=== PATIENT | female | born 1965 | race Caucasian/White ===

== ENCOUNTER 2020-02-10 09:23 | Observation (INO) | payer BC ==
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
[2020-02-10 09:54] LABS: #Basophils 0.1 thou/uL (0.0-0.2); #Eosinphils 0.2 thou/uL (0.0-0.7); #Lymphocytes 2.2 thou/uL (1.20-3.40); #Monocytes 0.3 thou/uL (0.11-0.59); #Neutrophils 3.5 thou/uL (1.40-6.50); %Basophils 1.9 % (0.0-1.0); %Eosinophils 2.8 % (0.0-10.0); %Monocytes 4.3 % (0.0-10.0); %Neutrophils 55.9 % (42.0-75.0); Mean Corpuscular HGB CONC 31.8 g/dL (32.0-36.0); Platelet Count 283 thou/uL (130-400); RBC Distribution Width 12.1 % (11.5-14.5); Red Blood Cell (RBC) Count 4.06 mill/uL (4.20-5.40); White Blood Cell (WBC) Count 6.2 thou/uL (4.8-10.8)
[2020-02-10 10:03] LABS: PTT 30.5 sec (22.9-36.1)
[2020-02-10 10:10] LABS: ALT (SGPT) 18 U/L (8-55); AST (SGOT) 27 U/L (5-34); Albumin 3.9 g/dL (3.5-5.0); Alkaline Phosphatase 123 U/L (40-110); Anion Gap 15 mmol/L (10-20); BUN (Urea Nitrogen) 11 mg/dL (9.8-20.1); Bilirubin, Total 0.4 mg/dL (0.2-1.2); CK (CPK) 77 U/L (29-168); Calc. Creatinine Clearance 0 mL/min (70-130); Calcium 8.6 mg/dL (7.8-10.44); Carbon Dioxide 16 mmol/L (22-29); Chloride 114 mmol/L (98-107); Globulin 2.5 g/dL (2.4-3.5); Glucose 130 mg/dL (70-105); Potassium 4.1 mmol/L (3.5-5.1); Protein, Total 6.4 g/dL (6.0-8.3); Sodium 141 mmol/L (136-145)
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
[2020-02-10] MEDS ORDERED: Iopamidol-370 76% 500 ML 1 ML ONE (10:32)
[2020-02-10] MEDS ORDERED: Aspirin 325 MG TAB ONE (11:03)
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
[2020-02-10 12:54] LABS: Bacteria/HPF None Seen HPF (None Seen); Bilirubin Negative (Negative); Blood, Urine Negative (Negative); Clarity Turbid (Clear); Glucose, Urine (Dipstick) Normal (Negative); Ketone, Urine Negative (Negative); Leukocyte 75 Leu/uL (Negative); Nitrite Negative (Negative); Protein, Urine (Dipstick) Negative (Neg-Trace); Squamous Epithelial 0-3 HPF (0-3); Urobilinogen Normal mg/dL (Less than 2); WBC/HPF None Seen HPF (0-3); pH, Urine 7.5 (5.0-9.0)
[2020-02-10 13:05] LABS: Specific Gravity, Urine 1.047 (1.002-1.036)
[2020-02-10] MEDS ORDERED: Acetaminophen 325 MG TAB PO PRN (14:08)
[2020-02-10] MEDS ORDERED: Senokot S 8.6-50 MG TAB PO PRN (14:08)
[2020-02-10] MEDS ORDERED: Ondansetron PF 4 MG/2 ML Vial IVP PRN (14:08)
[2020-02-10] MEDS ORDERED: Bisacodyl 10 MG SUPP PR PRN (14:08)
[2020-02-10] MEDS ORDERED: Loperamide HCl 2 MG CAP PO PRN (14:08)
[2020-02-10] MEDS ORDERED: Guaifenesin DM 100-10/5 ML UDCUP PO PRN (14:08)
[2020-02-10] MEDS ORDERED: Calcium Carbonate 500 MG ChewTAB PO PRN (14:08)
[2020-02-10] MEDS ORDERED: Ondansetron ODT 4 MG TAB PO PRN (14:08)
[2020-02-10 14:29] VITALS: BMI 26.7
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
[2020-02-10] MEDS ORDERED: SUMAtriptan Succinate 50 MG TAB PO PRN (20:08)
[2020-02-10] MEDS ORDERED: Bupropion 150 MG XL TAB PO SCH (21:00)
[2020-02-10] MEDS ORDERED: Citalopram 20 MG TAB PO SCH (21:00)
[2020-02-10] MEDS ORDERED: Loratadine 10 MG TAB PO SCH (21:00)
[2020-02-10] MEDS ORDERED: Montelukast Sodium 10 mg Tablet PO SCH (21:00)
[2020-02-10] MEDS ORDERED: Atorvastatin Calcium 40 MG TAB PO SCH (21:00)
[2020-02-10] MEDS ORDERED: Topiramate 100 MG TAB PO SCH (21:00)
[2020-02-10] MEDS: HYDROcodone/Acetaminophen 10/325 mg Tablet PO PRN (21:15)
[2020-02-10] MEDS: Famotidine 20 MG TAB PO SCH (21:16)
[2020-02-10 22:00] LABS: SARS-CoV-2 MS2 Positive; SARS-CoV-2 N Gene Negative; SARS-CoV-2 S Gene Negative; SARS-CoV-2 by NAA Not Detected (NotDetected); SARS-CoV-2 orf1ab Negative
[2020-02-11 05:25] LABS: Anion Gap 10 mmol/L (10-20); BUN (Urea Nitrogen) 12 mg/dL (9.8-20.1); Calc. Creatinine Clearance 86 mL/min (70-130); Calcium 8.7 mg/dL (7.8-10.44); Carbon Dioxide 24 mmol/L (22-29); Chloride 113 mmol/L (98-107); Cholesterol 217 mg/dl (< 200 Desired); Glucose 77 mg/dL (70-105); HDL Cholesterol 73 mg/dL (>60 Neg Risk); LDL Cholesterol, Calculated 124 mg/dL; Potassium 3.4 mmol/L (3.5-5.1); Sodium 144 mmol/L (136-145); Triglycerides 98 mg/dL (Less than 150)
[2020-02-11] MEDS: Famotidine 20 MG TAB PO SCH (08:08)
[2020-02-11] MEDS: HYDROcodone/Acetaminophen 10/325 mg Tablet PO PRN (08:08)
[2020-02-11] MEDS ORDERED: Aspirin 325 mg Enteric Coated Tablet PO SCH (09:00)
[2020-02-11] MEDS ORDERED: Potassium Chloride 20 MEQ TAB PO SCH (09:15)
[2020-02-11 10:28] LABS: #Basophils 0.1 thou/uL (0.0-0.2); #Eosinphils 0.2 thou/uL (0.0-0.7); #Lymphocytes 1.9 thou/uL (1.20-3.40); #Monocytes 0.4 thou/uL (0.11-0.59); %Basophils 1.8 % (0.0-1.0); %Eosinophils 3.8 % (0.0-10.0); %Lymphocytes 33.5 % (21.0-51.0); Hemoglobin 13.3 g/dL (12.0-16.0); Mean Corpuscular HGB CONC 32.1 g/dL (32.0-36.0); Mean Corpuscular Hemoglobin 31.6 pg (27.0-31.0); Mean Corpuscular Volume 98.7 fL (78.0-98.0); Mean Platelet Volume 7.7 fL (7.4-10.4); Platelet Count 298 thou/uL (130-400); RBC Distribution Width 12.1 % (11.5-14.5); Red Blood Cell (RBC) Count 4.19 mill/uL (4.20-5.40); White Blood Cell (WBC) Count 5.6 thou/uL (4.8-10.8)
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
--- NOTE | 2020-02-11 13:46 | MRI ---
MRI BRAIN WITHOUT CONTRAST: HISTORY: Left facial droop COMPARISON: None CORRELATION: CT scan from 02/10/2020. FINDINGS: No restricted diffusion is seen. There is a small old lacunar infarction in the left basal ganglia.. The ventricular size is appropriate and the basilar cisterns are patent. No evidence of acute infarct, hemorrhage, midline shift or abnormal extra-axial fluid collections is seen. There is mucosal disease in the paranasal sinuses. IMPRESSION: No evidence of acute intracranial process.
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
--- NOTE | 2020-02-11 17:24 | PDOC.EEG ---
Neurology EEG Report - Report Report: This EEG was performed using 24 channel [employer] video digital EEG machine with 24 disc electrodes. This was an extended 2-hours 6 minutes of inpatient video EEG recording. Digital analysis of the EEG was done for Wallace and seizure detection which revealed no abnormalities. Background: The posterior background rhythm is 9-10 Hz. The background rhythm attenuates with eye opening and enhances with eye closure. Hyperventilation.: Not performed. Photic stimulation: No significant response seen with photic stimulation Sleep: Drowsiness is observed. EEG diagnosis: Normal awake and drowsy EEG.
[2020-02-11 17:27] VITALS: TEMP 98
[2020-02-11 17:55] VITALS: BP 141/78
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
== END 2020-02-11 19:51 | disposition home or self-care (01) ==
LOC: ERS 09:23 → 2SE 11:55
PROVIDERS: ADMIT Internal Medicine; ATTEND Internal Medicine
DX: G45.9 Transient cerebral ischemic attack, unspecified (principal); I10 Essential (primary) hypertension; F41.9 Anxiety disorder, unspecified; F32.9 Major depressive disorder, single episode, unspecified; M47.22 Other spondylosis with radiculopathy, cervical region; Z79.899 Other long term (current) drug therapy; Z88.5 Allergy status to narcotic agent; Z91.048 Other nonmedicinal substance allergy status; Z88.8 Allergy status to other drugs, medicaments and biological substances
CPT/HCPCS: 36415; 36416; 70450; 70496; 70498; 70551; 72141; 80048; 80053; 80061; 81003; 81015; 82550; 83735; 84484; 85025; 85610; 85730; 87635; 93005; 93306; 95712; 95819; 95957; G0378; Q9967; U0003

== ENCOUNTER 2020-12-07 17:27 | Inpatient (IN) | payer BC ==
[2020-12-07] MEDS ORDERED: Fentanyl 100 MCG/2 ML VIAL ONE (17:51)
[2020-12-07] MEDS ORDERED: hydrALAZINE 20 MG/ML VIAL SLOW IVP PRN (18:40)
[2020-12-07] MEDS ORDERED: Ondansetron PF 4 MG/2 ML Vial IVP PRN (18:40)
[2020-12-07] MEDS ORDERED: Dextrose 50% Abboject 50 ML SYRINGE SLOW IVP PRN (18:40)
[2020-12-07] MEDS ORDERED: Dextrose 5% in Water 1,000 ML IV PRN (18:40)
[2020-12-07] MEDS ORDERED: Ondansetron ODT 4 MG TAB PO PRN (18:40)
[2020-12-07] MEDS ORDERED: Cyclobenzaprine 10 MG TAB PO PRN (18:44)
[2020-12-07] MEDS: Famotidine 20 MG TAB PO SCH (20:47)
[2020-12-07] MEDS: Acetaminophen 500 MG TAB PO SCH (20:47)
[2020-12-07] MEDS: Sodium Chloride 0.9% 1,000 ML IV SCH (20:48)
[2020-12-07 21:04] VITALS: BMI 25.7
[2020-12-08] MEDS: Acetaminophen 500 MG TAB PO SCH ×2 (02:41→08:54)
[2020-12-08] MEDS: Sodium Chloride 0.9% 1,000 ML IV SCH (06:31)
[2020-12-08 08:00] VITALS: TEMP 98
[2020-12-08] MEDS: Famotidine 20 MG TAB PO SCH (08:54)
[2020-12-08 10:28] VITALS: BP 116/71
== END 2020-12-08 11:41 | disposition home or self-care (01) | DRG 87 ==
LOC: ERS 17:27 → SURG B 18:15
PROVIDERS: ADMIT Surgery; ATTEND Surgery
DX: S06.5X0A Traumatic subdural hemorrhage without loss of consciousness, initial encounter (principal); S20.212A Contusion of left front wall of thorax, initial encounter; G43.909 Migraine, unspecified, not intractable, without status migrainosus; I10 Essential (primary) hypertension; F32.A Depression, unspecified; R40.2362 Coma scale, best motor response, obeys commands, at arrival to emergency department; R40.2142 Coma scale, eyes open, spontaneous, at arrival to emergency department; R40.2252 Coma scale, best verbal response, oriented, at arrival to emergency department; J45.909 Unspecified asthma, uncomplicated; Z86.73 Personal history of transient ischemic attack (TIA), and cerebral infarction without residual deficits; Z90.49 Acquired absence of other specified parts of digestive tract; Z90.89 Acquired absence of other organs; Z79.899 Other long term (current) drug therapy; Z79.82 Long term (current) use of aspirin; Z88.8 Allergy status to other drugs, medicaments and biological substances; Z91.048 Other nonmedicinal substance allergy status; Z98.1 Arthrodesis status; V49.40XA Driver injured in collision with unspecified motor vehicles in traffic accident, initial encounter; Y92.410 Unspecified street and highway as the place of occurrence of the external cause
CPT/HCPCS: 70450; 96374; J3010; J7050

== ENCOUNTER 2021-02-07 13:03 | Outpatient (CLI) | payer BC | END 2021-02-07 13:04 | disposition home or self-care (01) | LOC: BICCT 13:03 | PROVIDERS: ATTEND Neurological Surgery | DX: S06.5X9A Traumatic subdural hemorrhage with loss of consciousness of unspecified duration, initial encounter (principal) | CPT/HCPCS: 70450 ==